=== PATIENT | male | born 1975 | race Caucasian/White ===

== ENCOUNTER 2016-02-20 12:37 | Emergency (ER) | payer MEDICAID ==
--- NOTE | 2016-02-20 13:23 | Emergency Department Record ---
History of Present Illness - General Chief Complaint: Abdominal Pain Stated Complaint: RT SIDE PAIN,DIARRHEA Time Seen by Provider: 02/20/16 13:23 Source: Patient Mode of Arrival: Ambulatory Limitations: No limitations - History of Present Illness Initial Comments: The patient is here due to R flank/ back pain for about 1 hour. The onset was sudden and causes the patient's legs to sometimes feel weak. He denies any AP, nausea, vomiting, but he has had chronic diarrhea for about 6 weeks. The patient denies any dysuria, fever, chills, or vomiting. He presently is denying any leg numbness, weakness or any bowel or bladder issues. MD Complaint: Flank pain Onset/Timin -: Hour(s) Location: R Flank Radiation: None Migration to: No migration Severity: Moderate Quality: Aching Consistency: Constant Improves With: Nothing Worsens With: Nothing Associated Symptoms: Diarrhea - Related Data Home Medications Medication Instructions Recorded Confirmed Last Taken Abacavir/Dolutegravir/Lamivudi 1 each PO DAILY 02/07/16 02/20/16 Unknown [Triumeq Tablet] Sofosbuvir/Velpatasvir [Epclusa 1 tab PO DAILY 02/07/16 02/20/16 Unknown 400 mg-100 mg Tablet] Allergies Allergy/AdvReac Type Severity Reaction Status Date / Time No Known Drug Allergies Allergy Verified 02/07/16 09:49 Travel Screening - Travel/Exposure Within Last 30 Days Have you traveled within the last 30 days?: No Review of Systems Constitutional: Denies: Chills, Fever Eyes: Denies: Eye discharge ENT: Denies: Congestion Respiratory: Denies: Cough, Dyspnea Past Medical History - SOCIAL HISTORY Smoking Status: Current every day smoker - RESPIRATORY Hx Respiratory Disorders: Yes Hx Bronchitis: Yes Hx Pneumonia: Yes - CARDIOVASCULAR Hx Cardio Disorders: Yes Hx Hypotension: Yes - NEURO Hx Neuro Disorders: Yes Hx Seizures: Yes (epilepsy as child) - GI Hx GI Disorders: No - Hx Genitourinary Disorders: No - ENDOCRINE Hx Endocrine Disorders: No - MUSCULOSKELETAL Hx Musculoskeletal Disorders: No - HEMATOLOGY/ONCOLOGY Hx Hematology/Oncology Disorders: Yes Hx Anemia: Yes Comment:: HIV Family Medical History Any Significant Family History?: No Physical Exam - General General Appearance: Alert, Oriented x3, Cooperative, Mild distress (due to back pain.) - Head Head exam: Atraumatic, Normocephalic, Normal inspection - Eye Eye exam: Normal appearance, PERRL - Neck Neck exam: Normal inspection, Full ROM. negative: Tenderness - Respiratory Respiratory exam: Normal lung sounds bilaterally. negative: Respiratory distress - Cardiovascular Cardiovascular Exam: Regular rate, Normal rhythm, Normal heart sounds - GI/Abdominal GI/Abdominal exam: Soft, Normal bowel sounds. negative: Tenderness - Extremities Extremities exam: Normal inspection, Full ROM, Normal capillary refill. negative: Tenderness - Back Back exam: Reports: Normal inspection, Muscle spasm, Paraspinal tenderness ( There is very reproducible tenderness to palpation over the R upper lumbar paraspinal area with mild spasm.). Denies: Vertebral tenderness Course Vital Signs 02/20/16 13:04 Temperature 98.6 F Pulse Rate 100 H Respiratory 20 Rate Blood Pressure 108/75 Pulse Ox 95 - Reevaluation(s) Reevaluation #1: The patient was quite angry due to having to wait a short time to be seen. I then explained to him that it appears that he has back spasms and we will treat him with a pain shot and a muscle relaxer shot. We also will order lab work and a urinalysis to evaluate for blood in the urine. If he has blood in the urine we will at that time order a CT to R/O a ureter stone. The patient then became angry due to his belief that I was not listening to him so he decided to get up and walk out of the ER. He would not wait to sign any AMA paperwork. 02/20/16 13:47 Disposition Disposition: Discharge Clinical Impression: Flank Pain Disposition: Against Medical Advice Condition: (2) Stable Instructions: Flank Pain (ED) Forms: Patient Portal Access Time of Disposition: 13:52
== END 2016-02-20 13:45 | disposition left against medical advice (07) ==
LOC: ER 12:37
DX: M62.830 Muscle spasm of back (principal); R19.7 Diarrhea, unspecified
CPT/HCPCS: 99281

== ENCOUNTER 2018-10-05 18:38 | Emergency (ER) | payer MEDICAID ==
[2018-10-05 19:12] LABS: ABSOLUTE NEUTROPHIL COUNT 3.19; BASO % 0.3 % (0-6); EOS % 3.3 % (0-6); GRAN % 55.1 % (47-80); HEMATOCRIT 41.8 % (42.0-52.0); HEMOGLOBIN 14.3 gm/dl (14.0-18.0); LYMPH % 33.5 % (16-45); MEAN CELL VOLUME 97.7 fl (81-97); MEAN CORPUSCULAR HEMOGLOBIN 33.4 pg (27-33); MEAN CORPUSCULAR HGB CONC 34.2 g/dl (32-36); MEAN PLATELET VOLUME 9.5 fl (7.4-10.4); MONO % 7.8 % (0-9); PLATELET COUNT 204 K/uL (130-400); RED BLOOD COUNT 4.28 M/uL (4.40-5.70); RED CELL DISTRIBUTION WIDTH 12.4 % (11.5-14.5); WHITE BLOOD COUNT W/O DIFF 5.8 K/uL (4.2-12.2)
--- NOTE | 2018-10-05 19:13 | Emergency Department Record ---
History of Present Illness - General Chief Complaint: Detox Evaluation Stated Complaint: QUIT CHANTIX/DEPRESSION Time Seen by Provider: 10/05/18 18:45 Source: Patient Mode of Arrival: Ambulatory Limitations: No limitations Travel/Exposure to [place] Within 21 Days of Symptoms: No - History of Present Illness Initial Comments: 42 yo male presents to ED for evaluation of depression symptoms. Patient reports that he started Chantix 2 weeks ago, simultaneously has been switching his insurance and was not able to afford his medications for depression and has been trying to make them last for the past 2 weeks. Patient denies SI/HI, reports that he has been sleeping approximately 18 hours/day and has lack of ambition. 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 MD Complaint: Feels depressed Onset/Timin -: Days(s) Associated Psychiatric Symptoms: None, Depression History of same: Yes (not this severe) Quality: Constant Improves With: None Worsens With: None Context: Other Associated Symptoms: Denies other symptoms Treatments Prior to Arrival: None - Schroeder Coma Scale Eye Response: (4) Open spontaneously Motor Response: (6) Obeys commands Verbal Response: (5) Oriented Fabiola Total: 15 - Related Data Home Medications Medication Instructions Recorded Confirmed Last Taken Bictegrav/Emtricit/Tenofov Ala 1 each PO ASDIR 10/05/18 10/05/18 10/05/18 [Biktarvy 50-200-25 mg Tablet] Paliperidone [Invega] 6 mg PO DAILY 10/05/18 10/05/18 10/05/18 Vortioxetine Hydrobromide 10 mg PO ASDIR 10/05/18 10/05/18 10/05/18 [Trintellix] Allergies Allergy/AdvReac Type Severity Reaction Status Date / Time No Known Drug Allergies Allergy Verified 10/05/18 18:49 Review of Systems Constitutional: Denies: Chills, Fever, Malaise, Night sweats Eyes: Denies: Eye discharge, Eye pain ENT: Denies: Congestion, Ear pain, Epistaxis Respiratory: Denies: Cough, Dyspnea Cardiovascular: Denies: Chest pain, Dyspnea on exertion Endocrine: Reports: Fatigue. Denies: Heat or cold intolerance Gastrointestinal: Denies: Abdominal pain, Nausea, Vomiting Genitourinary: Denies: Incontinence, Retention Musculoskeletal: Denies: Arthralgia, Back pain Skin: Denies: Bruising, Change in color Neurological: Denies: Abnormal gait, Confusion, Headache, Seizure Psychiatric: Reports: Depression. Denies: Anxiety, Suicidal thoughts, Visual hallucinations Hematological/Lymphatic: Denies: Anemia, Blood Clots Past Medical History - SOCIAL HISTORY Smoking Status: Current every day smoker Alcohol Use: Rare Drug Use: Rare Drug Use Detail:: Marijuana - RESPIRATORY Hx Respiratory Disorders: Yes Hx Bronchitis: Yes Hx Pneumonia: Yes - CARDIOVASCULAR Hx Cardio Disorders: Yes Hx Hypotension: Yes - NEURO Hx Neuro Disorders: Yes Hx Seizures: Yes (epilepsy as child) - GI Hx GI Disorders: No - Hx Genitourinary Disorders: No - ENDOCRINE Hx Endocrine Disorders: No - MUSCULOSKELETAL Hx Musculoskeletal Disorders: No - PSYCH Hx Psych Problems: Yes Hx Depression: Yes - HEMATOLOGY/ONCOLOGY Hx Hematology/Oncology Disorders: Yes Hx Anemia: Yes Comment:: HIV Family Medical History Any Significant Family History?: No Physical Exam - General General Appearance: Alert, Oriented x3, Cooperative, No acute distress Limitations: No limitations - Head Head exam: Atraumatic, Normocephalic, Normal inspection Head exam detail: negative: Abrasion, Contusion, Simmons's sign, General tenderness, Hematoma, Laceration - Eye Eye exam: Normal appearance. negative: Conjunctival injection, Periorbital swelling, Periorbital tenderness, Scleral icterus - ENT Ear exam: negative: Auricular hematoma, Auricular trauma Nasal Exam: negative: Active bleeding, Discharge, Dried blood, Foreign body - Neck Neck exam: Normal inspection. negative: Meningismus, Tenderness - Respiratory Respiratory exam: Normal lung sounds bilaterally. negative: Rales, Respiratory distress, Rhonchi, Stridor - Cardiovascular Cardiovascular Exam: Regular rate, Normal rhythm, Normal heart sounds - GI/Abdominal GI/Abdominal exam: Soft. negative: Rebound, Rigid, Tenderness - Rectal Rectal exam: Deferred - exam: Deferred - Extremities Extremities exam: Normal inspection. negative: Pedal edema, Tenderness - Back Back exam: Denies: CVA tenderness (R), CVA tenderness (L) - Neurological Neurological exam: Alert, Normal gait, Oriented X3 - Psychiatric Psychiatric exam: Depressed, Flat affect. negative: Homicidal ideation, Suicidal ideation - Skin Skin exam: Normal color. negative: Abrasion Type of lesion: negative: abrasion Course Vital Signs 10/05/18 18:55 Temperature 97.6 F Pulse Rate 95 H Respiratory 20 Rate Blood Pressure 117/72 Pulse Ox 98 - Reevaluation(s) Reevaluation #1: 10/05/18 19:11 Patient was seen and examined, specifically denies SI/HI on examination. Will order basic labs and TSH and reassess. Reevaluation #2: 10/05/18 19:57 laboratory studies were reviewed and appear grossly unremarkable for an acute process. Patient continues to deny SI/HI, patient appears stable for discharge at this time with instructions to resume his medications for depression. Patient was instructed to follow-up with his PCP in 3-5 days as directed. Medical Decision Making - Lab Data Result diagrams: 10/05/18 19:05 10/05/18 19:05 Disposition Disposition: Discharge Clinical Impression: Depression Qualifiers: Depression Type: major depressive disorder Major depression recurrence: recurrent Active/Remission status: currently active Major depression episode severity: moderate Qualified Code(s): F33.1 - Major depressive disorder, recurrent, moderate Disposition: Home, Self-Care Condition: (2) Stable Instructions: Depression (ED) Additional Instructions: Return to ED if your symptoms worsen or if you have any concerns. restart your medications for depression as prescribed. Follow-up with your family doctor in 3-5 days as directed. Forms: Patient Portal Access Time of Disposition: 19:59 Quality - Quality Measures Quality Measures: N/A - Blood Pressure Screening Does Patient Have Any of the Following: No Blood Pressure Classification: Normal BP Reading Systolic Measurement: 117 Diastolic Measurement: 72 Screening for High Blood Pressure: < Normal BP, F/U Not Required > [[id number]]
[2018-10-05 19:25] LABS: BLOOD UREA NITROGEN 12 mg/dL (6-20); CREATININE 0.9 mg/dL (0.7-1.2); EST GLOMERULAR FILTRATION RATE > 60 mL/min
[2018-10-05 19:26] LABS: TOTAL PROTEIN 6.2 g/dL (6.6-8.7)
[2018-10-05 19:28] LABS: GLUCOSE,RANDOM 140 mg/dL (74-109)
[2018-10-05 19:31] LABS: ALB/GLOB RATIO 2.1 (1.1-1.8); ALBUMIN 4.2 g/dL (4.0-5.0); ALKALINE PHOSPHATASE 68 U/L (40-129); ALT/SGPT 10 U/L (<41); AST/SGOT 13 U/L (10.0-50.0)
[2018-10-05 19:41] LABS: THYROID STIMULATING HORMONE 2.08 uIU/mL (0.270-4.20)
== END 2018-10-05 20:16 | disposition home or self-care (01) ==
LOC: ER 18:38
DX: F33.1 Major depressive disorder, recurrent, moderate (principal); F17.210 Nicotine dependence, cigarettes, uncomplicated
CPT/HCPCS: 80053; 84443; 85025; 99284